=== PATIENT | female | born 1975 | race African-American/Black ===

== ENCOUNTER 2019-05-13 10:27 | Inpatient (IN) ==
[2019-05-13 11:14] LABS: BASO# 0.04 X1000 (0.0-0.2); BASO% 0.6 % (0.0-0.8); EOS# 0.02 X1000 (0.0-0.7); EOS% 0.3 % (0.0-10.0); HEMATOCRIT 25.9 % (37.0-47.0); HEMOGLOBIN 6.8 g/dL (12.0-16.0); IMM GRAN# 0.03 X1000 (0.0-0.04); IMM GRAN% 0.5 % (0.0-0.5); LYMPH# 2.01 X1000 (1.2-3.4); LYMPH% 30.8 % (20.5-51.1); MCH 17.5 PG (27-31); MCHC 26.3 g/dL (33-37); MCV 66.8 FL (81-99); MONO# 0.99 X1000 (0.11-0.59); MONO% 15.2 % (1.7-9.3); NEUT# 3.44 X1000 (1.4-6.5); NEUT% 52.6 % (42.2-75.2); PLT 246 X1000 (130-400); RBC 3.88 XMIL (4.2-5.4); RDW 23.4 % (11.5-14.5); WBC 6.53 X1000 (4.8-10.8)
[2019-05-13 11:23] LABS: UR AMPHETAMINES QUAL NONE DETECTED (NONE DETECT); UR BARBITUATES QUAL NONE DETECTED (NONE DETECT); UR BENZODIAZEPIN QUAL NONE DETECTED (NONE DETECT); UR CANNABINOIDS QUAL NONE DETECTED (NONE DETECT); UR COCAINE QUAL PRESUMPTIVE POSITIVE (NONE DETECT); UR METHADONE QUAL NONE DETECTED (NONE DETECT); UR METHAMPHETAMINE QUAL NONE DETECTED (NONE DETECT); UR OPIATES QUAL NONE DETECTED (NONE DETECT); UR OXYCODONE QUAL NONE DETECTED (NONE DETECT); UR PCP QUAL NONE DETECTED (NONE DETECT); UR PROPOXYPHENE QUAL NONE DETECTED (NONE DETECT); UR TCA QUAL NONE DETECTED (NONE DETECT)
[2019-05-13 11:31] LABS: AGAP 10; ALBUMIN 3.8 g/dL (3.5-5.0); ALKALINE PHOSPHATASE 70 U/L (32-104); BUN 8 mg/dL (8-22); CHLORIDE 99 mmol/L (98-107); COSMO 267; CREATININE 0.6 mg/dL (0.5-0.9); ESTIMATED GFR > 60; GLUCOSE 139 mg/dL (70-104); GOT 29 U/L (10-30); GPT 12 U/L (10-36); POTASSIUM 3.9 mmol/L (3.5-5.1); SODIUM 133 mmol/L (136-145); TCO2 24 mmol/L (25-35); TOTAL PROTEIN 7.8 g/dL (6.3-8.3)
--- NOTE | 2019-05-13 11:33 | Diag Imaging Result Doc PS360 ---
EXAM: CHEST-1 VIEW - 05/13/2019 HISTORY: sob TECHNIQUE: One view chest COMPARISON: 03/12/2019 FINDINGS: Heart size appears enlarged by mildly decreased compared to prior. There is mild prominence of central vascular and basilar interstitial markings. There is no dense consolidation, substantial pleural effusion, or pneumothorax identified. There is scoliosis noted. IMPRESSION: Cardiomegaly, with apparent mild congestive heart failure. Electronically signed by Antonio Bailey 05/13/2019 11:31 AM
[2019-05-13 11:37] LABS: BILIRUBIN URINE NEGATIVE (NEGATIVE); BLOOD URINE NEGATIVE (NEGATIVE); CLARITY CLEAR (CLEAR); COLOR YELLOW; GLUCOSE URINE NEGATIVE (NEGATIVE); KETONE URINE TRACE mg/dL (NEGATIVE); LEUKOCYTES URINE TRACE (NEGATIVE); NITRITE URINE NEGATIVE (NEGATIVE); PROTEIN URINE TRACE mg/dL (NEGATIVE); UROBILINOGEN URINE NORMAL
[2019-05-13 11:38] LABS: URINE BACTERIA 3+ /HFP; URINE CRYSTAL NONE SEEN /HPF; URINE EPITHELIAL CELLS >10 /HPF (<10); URINE RBC <10 /HPF (<10); URINE SOURCE CLEAN CATCH; URINE TRICHOMONAS PRESENT; URINE YEAST NONE SEEN /HPF
[2019-05-13 11:59] LABS: ANISOCYTOSIS 2+; LYMPHS 27 % (21-51); MICROCYTOSIS 1+; MONO 9 % (1-9); SEGS 64 % (42-75)
--- NOTE | 2019-05-13 12:03 | EKG Report ---
Test Performed on : 05/13/2019 11:56:45 AM Test Reason : sob Blood Pressure : / mmHG Vent. Rate : 100 BPM Atrial Rate : 100 BPM P-R Int : 160 ms QRS Dur : 080 ms QT Int : 380 ms P-R-T Axes : 075 060 -27 degrees QTc Int : 490 ms Normal sinus rhythm. Possible Left atrial enlargement Low voltage QRS Cannot rule out Anterior infarct , age undetermined Abnormal ECG When compared with ECG of 12-MAR-2019 10:40, (Unconfirmed) Minimal criteria for Anterior infarct are now present Unconfirmed Result
[2019-05-13] MEDS ORDERED: NS 500 ML IV ONE (12:06)
--- NOTE | 2019-05-13 12:06 | PROVIDER DOCUMENTATION ---
This chart was entered by Rosalio Duke Scribe, acting as scribe for Rene Escoto MD. HPI-General Adult - General Chief Complaint: Edema Stated Complaint: FEET SWELLING Time Seen by Provider: 05/13/19 10:40 Source: patient Allergies/Adverse Reactions: Patient Allergies Allergy/AdvReac Type Severity Reaction Status Date / Time No Known Allergies Allergy Verified 05/11/15 12:04 Home Medications: Home Medication List Medication Instructions Recorded Confirmed Last Taken Type NK [No Home Medications] 05/13/19 05/13/19 Unknown History - History of Present Illness -Gen Adult Nature of Presenting Problems: Pt is a 44 yof who presents to the ED with a CC of edema. Pt reports her feet simmons ve been swelling for approximately one month. Pt reports she was seen here in February for similar symptoms and states she left AMA and refused a transfusion. Pt complains of generalized weakness and an itching sensation across her body. Pt also complains of being short of breath having a cough, and numbness bilaterally in her hands. Upon examination the pt had 1+ pitting edema bilaterally in her lower extremities. Location of Pain/Injury: reports: feet (Bilateral edema), generalized Quality of Pain: reports: fullness, other Severity: reports: mild Onset/Duration: reports: other (One month) Timing: reports: still present Associated Symptoms: reports: cough, shortness of breath, weakness, other Similar Symptoms Previously?: Yes Recently seen or treated by another doctor?: No Review of Systems - Adult - REVIEW OF SYSTEMS - ADULT Constitutional: reports: see HPI Eyes: reports: no symptoms reported Ears, Nose, Mouth & Throat: reports: no symptoms reported Cardiovascular: reports: see HPI Respiratory: reports: see HPI, cough, shortness of breath Gastrointestinal: reports: no symptoms reported Genitourinary: reports: no symptoms reported Musculoskeletal: reports: see HPI, muscle weakness Integumentary: reports: see HPI, itching Neurological: reports: see HPI, numbness (Bilateral hands) Psychiatric: reports: no symptoms reported Endocrine: reports: no symptoms reported Hematologic/Lymphatic: reports: see HPI Allergic/Immunologic: reports: no symptoms reported All Other Systems: Reviewed and Negative Past History - Adult - PAST MEDICAL HISTORY-ADULT Review of Records: reports: Old Records Reviewed, Nursing Assessment Review, Medications Reviewed, Social history reviewed & non-contributory. Major Childhood Illnesses: reports: denies history Cardiovascular: reports: denies history Respiratory: reports: denies history Gastrointestinal: reports: denies history Obstetrical/Gynecological: reports: denies history Genitourinary: reports: denies history Musculoskeletal: reports: denies history Neurological: reports: denies history Endocrine/Immune: reports: anemia Other Conditions: reports: denies history - IMMUNIZATION STATUS Childhood Immunizations: See Nurse Assessment Flu Vaccine: See Nurse Assessment - FAMILY HISTORY Family History: reviewed, not pertinent - SOCIAL HISTORY Smoking: cigarettes, greater than 1 pack/day Substance Use: alcohol, marijuana Alcohol Use Frequency: every day Physical Exam-General - PHYSICAL EXAM-ADULT Initial Vital Signs Reviewed: Yes - CONSTITUTIONAL General Appearance: alert, mild distress - EYES Eyes: PERRL/EOMI - HEAD, EARS, NOSE, MOUTH & THROAT HENMT: moist mucous membranes - NECK Neck: non-tender, full range of motion - RESPIRATORY Respiratory: chest non-tender, lungs clear, normal breath sounds - CARDIOVASCULAR Cardiovascular: tachycardia, other (edema) - GASTROINTESTINAL (ABDOMEN) Abdominal Exam: non tender, soft - MUSCULOSKELETAL Extremity: normal range of motion, pedal edema (Bilaterally) - SKIN Integumentary: normal color, warm/dry, swelling - NEUROLOGIC Neurologic: grossly normal - PSYCHIATRIC Psych/Mental Status: normal mood/affect, normal thought content, normal thought process, oriented x 3 Progress - PLAN OF CARE/RESULTS Progress/Plan/Lab Results: Vital Signs - 8 hr 05/13/19 10:35 Temperature 97.8 F Pulse Rate 112 H Respiratory Rate 18 Blood Pressure 166/87 O2 Sat by Pulse Oximetry 98 Orders Category Date Time Status CBC WITH DIFF [HEME] Stat Lab 05/13/19 10:39 Ordered COMPREHENSIVE METABOLIC PANEL [CHEM] Stat Lab 05/13/19 10:[address] W/POSS RFLX CULT [URINALYSIS] Stat Lab 05/13/19 10:39 Uncollected Result Diagrams: 05/13/19 10:53 05/13/19 10:53 - EKG 1 Time of EKG reading by physician:: 11:56 EKG Read and Signed by:: Rene Escoto EKG Interpretation (*Must complete 3 of following elements*): Abnormal (Possible left atrial enlargement; Low voltage QRS; Cannot rule out anterior infarct, age undetermined) Rate: 100 Rhythm: NSR [place]: normal QRS: normal IA Interval: normal ST Wave: normal - XRAY 1 XRAY: Bilateral XRAY Study: Chest Impression: See EMR Report (EXAM: CHEST-1 VIEW - 05/13/2019 HISTORY: sob TECHNIQUE: One view chest COMPARISON: 03/12/2019 FINDINGS: Heart size appears enlarged by mildly decreased compared to prior. There is mild prominence of central vascular and basilar interstitial markings. There is no dense consolidation, substantial pleural effusion, or pneumothorax identified. There is scoliosis noted. IMPRESSION: Cardiomegaly, with apparent mild congestive heart failure. Electronically signed by Antonio Bailey 05/13/2019 11:31 AM 05/13/19 1131 Interpreting Physician: Antonio Bailey MD Dictated Date/Time: 05/13/19 1126 cc: Rene Escoto MD; None,PCP) Departure - Departure Date of Disposition Decision: 05/13/19 Time of Disposition Decision: 12:05 DIAGNOSIS: Edema, CHF (congestive heart failure), Anemia, UTI (urinary tract infection), Substance abuse Disposition: ADMITTED INPATIENT 09 Certified Medical Emergency: Emergent Condition: Fair Additional Instructions: ED Follow Up Instructions: You have been treated by a care provider in the Emergency Department. These instructions are being provided to you so you can have an understanding of how to care for yourself upon discharge. Upon discharge from the Emergency Department, you are responsible for making arrangements for follow-up care by a physician of your choice. Take all prescribed medications as directed. Return to the Emergency Department immediately for any new or worsening symptoms. You may call the Physician Referral phone number at [phone] to obtain a list of Physicians who are taking new patients. Referrals and Follow-Ups: None,PCP [Primary Care Provider] - - Critical Care Note This patient required my direct & personal management of CC.: Yes Total Time (mins): 35 Critical Care Statement: This patient required my direct personal management to treat or rule out processes, the absence of which, could potentiallly result in sudden, clinically significant life or limb threatening deterioration. Attestation - Physician/ WILI Attestation Patient care was provided by Advanced Practice Provider:: No The physician spent face to face time with patient:: Yes Advanced Practice Provider documentation review:: Supervising physician onsite and consulted in the evaluation and care of this patient. The physician did have a face to face encounter with the patient. This chart was documented by the indicated scribe, (Rosalio Duke, Victorino) and accurately reflects the services I performed and decisions made by me, Rene Escoto MD, as attested by the provider's signature.
[2019-05-13] MEDS ORDERED: ROCEPHIN 1 GM in NS 50 ML IV ONE (12:09)
[2019-05-13] MEDS ORDERED: NICODERM PATCH TD ONE (12:35)
[2019-05-13] MEDS ORDERED: TYLENOL PO PRN ×2 (13:14→13:15)
[2019-05-13] MEDS ORDERED: ZOFRAN IV PRN ×2 (13:14→13:15)
[2019-05-13] MEDS ORDERED: DUONEB (A & A) INH PRN (13:15)
[2019-05-13] MEDS ORDERED: FLU VACCINE IM ONE (15:24)
[2019-05-13] MEDS ORDERED: PNEUMOVAX 23 IM ONE (16:00)
[2019-05-13] MEDS: HUMALOG (PARKWAY) SUBQ SCH ×2 (16:55→21:49)
--- NOTE | 2019-05-13 18:05 | HISTORY AND PHYSICAL ---
CHIEF COMPLAINT: Lower extremity edema x1 month with generalized weakness and generalized itching with shortness of breath and a cough. HISTORY OF PRESENT ILLNESS: This is a 44-year-old female with a history significant for depression and anemia. She presented to the emergency room complaining of lower extremity edema for the last month as well as generalized weakness, generalized itching, with shortness of breath and a cough. The patient presented to the emergency room in February for evaluation and left against medical advice. Her complaint then was bilateral lower extremity edema. She denies any syncope or dizziness, any chest pain or palpitations, any fevers or chills. PAST MEDICAL HISTORY: Hypertension and depression. SOCIAL HISTORY: Cocaine abuse. Cannabinoid abuse and tobacco use. She drinks about six beers a day. ALLERGIES: No known drug allergies. HOME MEDICATIONS: None. REVIEW OF SYSTEMS: Discussed with the patient with pertinent positives stated in the HPI. She denied any syncope or dizziness, chest pain or palpitations, any fever, chills, or night sweats, recent weight loss or weight gain, any nausea, vomiting, diarrhea, constipation, black or bloody vomitus or stools, hematuria, dysuria, frequency or urgency. PHYSICAL EXAMINATION: GENERAL: This is a 44-year-old female who is sitting up in the bed in no distress. VITAL SIGNS: Blood pressure is 142/95 with a heart rate of 98, respirations are 18, temperature is 98.3 with room air saturation of 97% to 100%. EYES: Pupils are equal, round, react to light. EOMs are intact. Sclerae are anicteric. HEENT: Head is normocephalic, atraumatic. Mucous membranes are moist. NECK: Supple with trachea midline. She has no JVD. CARDIOVASCULAR: Regular rate and rhythm. S1 and S2 appreciated. She has bilateral lower extremity edema from just around the knees down, being trace of pretibial edema with 1 to 2+ lower extremity edema. Calves are nontender bilateral with peripheral pulses palpable x4 extremities. PULMONARY: Breath sounds are clear. No increased work of breathing noted. Chest rises and falls symmetric with respiration. GASTROINTESTINAL: Abdomen is soft, nontender, and nondistended with bowel sounds in all four quadrants. GENITOURINARY: No CVA or suprapubic tenderness. NEUROLOGIC: She is alert and oriented x3. SKIN: Warm and dry. LABORATORY DATA: WBC is 6.5 with hemoglobin 6.8, hematocrit 25.9, and platelets of 246,000. Sodium 133, potassium 3.9, BUN 8, creatinine 0.6 with a glucose of 139. Troponin is less than 0.010 on multiple occasions. ProBNP is 2717. Urinalysis reveals 10-20 microscopic white blood cells, greater than 10 epithelial cells with trichomonas present. Urine drug screen is presumptive positive for cocaine. Urine culture is pending. IMAGING: Chest x-ray reveals cardiomegaly with apparent mild congestive heart failure. ASSESSMENT AND PLAN: 1. Congestive heart failure. The patient denies any history. In reviewing her chest x-rays, a chest x-ray was performed in February 2019 and it revealed an enlarged heart that was not enlarged in 2014. Will obtain an echocardiogram. Daily weights. Strict intake and output. 2. Trichomonas - Flagyl 500 mg orally every eight hours. Urine culture is pending so any further antibiotics will be culture driven. 3. Cocaine abuse. Did discuss with the patient the perils of continuing to smoke cocaine, that could ultimately lead up to her demise. She did voice understanding. 4. Chronic tobacco abuse. We did discuss smoking cessation. She will be given written materials. Plan was discussed with Dr. Mo. Further treatments pending hospital course. Dictated by ALMA Farmer for Robert oM MD cc: ALMA Farmer MD [facility]
[2019-05-13 20:05] LABS: OCCULT BLOOD 1 NEGATIVE (NEGATIVE)
[2019-05-13] MEDS: FLAGYL PO SCH (21:04)
--- NOTE | 2019-05-13 23:49 | HISTORY AND PHYSICAL ---
ADDENDUM: Patient seen and examined by myself. Full note dictated and discussed with nurse practitioner. Patient presented to the hospital noting that she has had swelling in her feet. Also notes that she has been itching "inside her body." She apparently has a history of anemia although her hemoglobin and hematocrit has not been this low. We are going to admit to the hospital, transfuse her 1 unit. Discussed with her that she probably has a urinary tract infection. We are going to place her on antibiotics. Discussed the perils of cocaine use as well as other illicit substance use. We are going to check an echocardiogram and we will follow. cc: Robert Mo MD
[2019-05-14] MEDS: FLAGYL PO SCH (04:20)
[2019-05-14 05:28] LABS: HEMOGLOBIN 9.1 g/dL (12.0-16.0); MCH 20.2 PG (27-31); MCHC 29.4 g/dL (33-37); MCV 68.7 FL (81-99); PLT 239 X1000 (130-400); RBC 4.51 XMIL (4.2-5.4); RDW 24.4 % (11.5-14.5); WBC 6.28 X1000 (4.8-10.8)
[2019-05-14 05:35] LABS: AGAP 10; ALBUMIN 3.4 g/dL (3.5-5.0); ALKALINE PHOSPHATASE 69 U/L (32-104); BUN 8 mg/dL (8-22); CALCIUM 8.9 mg/dL (8.8-10.2); CHLORIDE 102 mmol/L (98-107); COSMO 266; CREATININE 0.6 mg/dL (0.5-0.9); ESTIMATED GFR > 60; GLUCOSE 96 mg/dL (70-104); GOT 25 U/L (10-30); GPT 11 U/L (10-36); MAGNESIUM 1.5 mg/dL (1.5-2.7); POTASSIUM 4.1 mmol/L (3.5-5.1); SODIUM 134 mmol/L (136-145); TCO2 22 mmol/L (25-35); TOTAL PROTEIN 7.3 g/dL (6.3-8.3)
[2019-05-14] MEDS: HUMALOG (PARKWAY) SUBQ SCH (06:44)
[2019-05-14 08:37] VITALS: BP 136/100
[2019-05-14] MEDS ORDERED: ROCEPHIN 1 GM in NS 50 ML IV SCH (10:00)
--- NOTE | 2019-05-14 17:48 | ECHO REPORT ---
ORDER DATE: 05/13/2019 MEASUREMENTS: Septal thickness 1.5, left ventricular internal diameter diastole 5.0, left ventricular posterior wall thickness 1.2, left ventricular internal diameter end systole 4.2, aortic root 3.1, left atrium 4.6. SUMMARY: 1. Adequate quality study. 2. Aortic valve is trileaflet and opens normally on 2-dimensional images. The peak gradient across the aortic valve is less than 10 mmHg. Mitral, tricuspid, and pulmonic valves are without evidence of structural abnormality with mild mitral regurgitation and [id number] tricuspid regurgitation. The estimated systolic PA pressure by Doppler is 50 to 55 mmHg suggesting moderate pulmonary hypertension. Aortic root is normal size. 3. Normal left ventricular chamber size with mild concentric left hypertrophy is demonstrated. The estimated left ejection fraction is 30% to 35% in the setting of global hypokinesis. Left atrium is [id number] enlarged. Right atrium is mildly enlarged. Right ventricle is upper normal in size with borderline reduced right ventricular systolic function. 4. Borderline reduced right ventricular systolic function. 5. Small pericardial effusion predominantly posteriorly. 6. Appearance of inferior vena cava suggests elevated central venous pressure. cc: MD Robert Ames MD
--- NOTE | 2019-05-15 04:55 | DISCHARGE SUMMARY ---
ADMISSION DATE: 05/13/2019 DISCHARGE DATE: 05/14/2019 ADDENDUM: Patient seen and examined by myself. Full note dictated and discussed with nurse practitioner. The patient will be discharged home. She did receive 1 unit of blood transfusion. Her hemoglobin and hematocrit elevated as to be expected. Discussed with patient the importance of following up regarding her congestive heart failure and hypertension. Discussed the perils of cocaine use as well as other stimulants. Patient will be discharged home. Please see full note. cc: Robert Mo MD
== END 2019-05-14 10:11 | disposition home or self-care (01) | DRG 292 ==
LOC: P.ED 10:27 → P.MEDSURG 14:28
PROVIDERS: ATTEND Family Medicine

== ENCOUNTER 2019-07-23 22:35 | Observation (INO) ==
[~2019-07-23 22:35] MED LIST: LASIX IV ONE
[2019-07-23 22:49] LABS: BE 0.3 mmoll (-3.0-3.0); BLOOD TYPE ARTERIAL; HCO3-(ACT) 25.1 mmoll (20.0-26.0); METHB 0.8 % (0.0-1.5); O2(CT) 11.5 mL/dL (15.0-23.0); O2HB 94.1 % (95.0-99.0); PCO2(98.6) 37 mmHg (35-45); PO2(98.6) 208 mmHg (60-100); SAMPLE BLOOD; SAO2 100.3 % (95.0-100.0); THB 8.3 g/dL (11.5-17.4); pH(98.6) 7.43 (7.35-7.45)
[2019-07-23 22:52] LABS: ALLEN TEST NO; MODALITY NRB
[2019-07-23 23:11] LABS: BASO# 0.03 X1000 (0.0-0.2); BASO% 0.5 % (0.0-0.8); EOS# 0.03 X1000 (0.0-0.7); EOS% 0.5 % (0.0-10.0); HEMATOCRIT 28.3 % (37.0-47.0); HEMOGLOBIN 8.3 g/dL (12.0-16.0); IMM GRAN# 0.02 X1000 (0.0-0.04); IMM GRAN% 0.3 % (0.0-0.5); LYMPH# 1.72 X1000 (1.2-3.4); LYMPH% 27.6 % (20.5-51.1); MCH 20.3 PG (27-31); MCHC 29.3 g/dL (33-37); MCV 69.4 FL (81-99); MONO% 11.2 % (1.7-9.3); NEUT# 3.73 X1000 (1.4-6.5); NEUT% 59.9 % (42.2-75.2); PLT 238 X1000 (130-400); RBC 4.08 XMIL (4.2-5.4); RDW 25.2 % (11.5-14.5); WBC 6.23 X1000 (4.8-10.8)
[2019-07-23 23:21] LABS: UR AMPHETAMINES QUAL NONE DETECTED (NONE DETECT); UR BARBITUATES QUAL NONE DETECTED (NONE DETECT); UR BENZODIAZEPIN QUAL NONE DETECTED (NONE DETECT); UR CANNABINOIDS QUAL PRESUMPTIVE POSITIVE (NONE DETECT); UR COCAINE QUAL PRESUMPTIVE POSITIVE (NONE DETECT); UR METHADONE QUAL NONE DETECTED (NONE DETECT); UR METHAMPHETAMINE QUAL NONE DETECTED (NONE DETECT); UR OPIATES QUAL NONE DETECTED (NONE DETECT); UR OXYCODONE QUAL NONE DETECTED (NONE DETECT); UR PCP QUAL NONE DETECTED (NONE DETECT); UR PROPOXYPHENE QUAL NONE DETECTED (NONE DETECT); UR TCA QUAL NONE DETECTED (NONE DETECT)
[2019-07-23 23:26] LABS: AGAP 12; ALBUMIN 2.9 g/dL (3.5-5.0); ALKALINE PHOSPHATASE 124 U/L (32-104); BUN 7 mg/dL (8-22); CALCIUM 7.9 mg/dL (8.8-10.2); CHLORIDE 105 mmol/L (98-107); COSMO 275; CREATININE 0.6 mg/dL (0.5-0.9); ESTIMATED GFR > 60; GLUCOSE 120 mg/dL (70-104); GOT 52 U/L (10-30); GPT 17 U/L (10-36); POTASSIUM 3.6 mmol/L (3.5-5.1); SODIUM 138 mmol/L (136-145); TCO2 21 mmol/L (25-35); TOTAL PROTEIN 7.2 g/dL (6.3-8.3)
--- NOTE | 2019-07-24 00:09 | PROVIDER DOCUMENTATION ---
This chart was entered by Dolores Ricks Scribe, acting as scribe for Baltazar Dinero MD. HPI-Respiratory General - General Stated Complaint: difficult breathing Time Seen by Provider: 07/23/19 22:25 Source: patient, EMS Allergies/Adverse Reactions: Patient Allergies Allergy/AdvReac Type Severity Reaction Status Date / Time No Known Allergies Allergy Verified 07/24/19 00:30 Home Medications: Home Medication List Medication Instructions Recorded Confirmed Last Taken Type NK [No Home Medications] 06/17/19 07/24/19 Unknown History - History of Present Illness-Resp Nature of Presenting Problem: pt is a 44 yr old female presenting via EMS with complaint of worsening shortness of breath, pt hx of CHF, no home o2, no nebulizer tx, does not take Lasix. pt reports improvement albuterol inhaler(borrowed) pt denies chest pain, admits increased edema. pt also admits excessive cocaine use during [place]. EMS report room air sat in 70's. Quality of Pain: reports: none Severity in ED: reports: severe Onset/Duration: reports: gradual Timing: reports: changing over time, getting worse Cough Quality/Degree: reports: moderate, dry cough Episode Frequency: frequent episodes Current Respiratory Medication Therapy: Initiated albuterol (albuterol inhaler- borrowed, minimal improvement) Modifying Factors: improves with: albuterol inhaler (minimal improvement) Associated Symptoms: reports: cough, hyperventilating, shortness of breath, wheezing, other (edema). denies: chest pain/soreness, fever/chills Similar Symptoms Previously?: Yes Recently seen or treated by another doctor?: No Review of Systems - Adult - REVIEW OF SYSTEMS - ADULT Constitutional: reports: fatique. denies: chills, fever Eyes: reports: no symptoms reported Ears, Nose, Mouth & Throat: reports: no symptoms reported Cardiovascular: reports: edema. denies: chest pain, palpitations, syncope Respiratory: reports: chronic cough, cough, dyspnea on exertion, shortness of breath, wheezing Gastrointestinal: denies: abdominal pain, nausea, vomiting Genitourinary: reports: no symptoms reported Musculoskeletal: reports: no symptoms reported Integumentary: reports: no symptoms reported Neurological: denies: dizziness/vertigo, headache/migraines, syncope Psychiatric: reports: no symptoms reported Endocrine: reports: no symptoms reported Hematologic/Lymphatic: reports: no symptoms reported Allergic/Immunologic: reports: no symptoms reported All Other Systems: Reviewed and Negative Past History - Adult - PAST MEDICAL HISTORY-ADULT Review of Records: reports: Old Records Reviewed, Nursing Assessment Review, Medications Reviewed, Social history reviewed & non-contributory. Major Childhood Illnesses: reports: denies history Cardiovascular: reports: denies history Respiratory: reports: denies history Gastrointestinal: reports: denies history Obstetrical/Gynecological: reports: denies history Genitourinary: reports: denies history Musculoskeletal: reports: denies history Neurological: reports: denies history Endocrine/Immune: reports: denies history Other Conditions: reports: denies history - IMMUNIZATION STATUS Childhood Immunizations: See Nurse Assessment Flu Vaccine: See Nurse Assessment - FAMILY HISTORY Family History: reviewed, not pertinent - SOCIAL HISTORY Smoking: cigarettes, greater than 1 pack/day (2+ppd) Provider spent 3-5 mins advising pt. on dangers of tobacco.: Discussed manners to quit use, and f/u contacts for add'l counseling. Substance Use: cocaine Living Situation: alone Physical Exam-General - PHYSICAL EXAM-ADULT Initial Vital Signs Reviewed: Yes - CONSTITUTIONAL General Appearance: alert, moderate distress, anxious - EYES Eyes: PERRL/EOMI, pink conjunctivae - HEAD, EARS, NOSE, MOUTH & THROAT HENMT: normocephalic/atraumatic, moist mucous membranes, normal ENT inspection - NECK Neck: non-tender, full range of motion, supple, normal inspection - RESPIRATORY Respiratory: chest non-tender, decreased breath sounds, rales, wheezing, increased rate - CARDIOVASCULAR Cardiovascular: regular rate, rhythm, tachycardia, other (diffuse edema) - GASTROINTESTINAL (ABDOMEN) Abdominal Exam: normal bowel sounds, non tender, distended - LYMPHATIC Lymphatic: no adenopathy - MUSCULOSKELETAL Back Exam: normal inspection Extremity: normal range of motion, non-tender, pedal edema - SKIN Integumentary: normal color, normal turgor, warm/dry - NEUROLOGIC Neurologic: grossly normal, no motor/sensory deficits - PSYCHIATRIC Psych/Mental Status: oriented x 3, anxious Progress - PLAN OF CARE/RESULTS Progress/Plan/Lab Results: Vital Signs - 8 hr 07/23/19 22:31 07/23/19 23:11 07/23/19 23:29 Pulse Rate 100 H 107 H Respiratory Rate 26 H 26 H Blood Pressure 144/100 141/99 O2 Sat by Pulse Oximetry 100 100 100 07/24/19 00:20 07/24/19 01:03 Pulse Rate 101 H 98 H Respiratory Rate 24 12 Blood Pressure 141/102 138/101 O2 Sat by Pulse Oximetry 100 98 Laboratory Results - last 24 hr 07/23/19 07/23/19 07/23/19 22:30 22:41 22:41 WBC 6.23 RBC 4.08 L Hgb 8.3 L Hct 28.3 L MCV 69.4 L MCH 20.3 L MCHC 29.3 L RDW Std Deviation 25.2 H Plt Count 238 MPV Not Reportable Immature Gran % (Auto) 0.3 Neut % (Auto) 59.9 Lymph % (Auto) 27.6 [place] % (Auto) 11.2 H Eos % (Auto) 0.5 Baso % (Auto) 0.5 Immature Gran # (Auto) 0.02 Neut # (Auto) 3.73 Lymph # (Auto) 1.72 [place] # (Auto) 0.70 H Eos # (Auto) 0.03 Baso # (Auto) 0.03 Specimen Type ARTERIAL Sample Site L BRACHIAL pH 7.43 pCO2 37 pO2 208 H HCO3 25.1 Base Excess 0.3 Oxyhemoglobin 94.1 L ABG O2 Sat (Calculated) 11.5 L ABG O2 Saturation 100.3 H ABG Carboxyhemoglobin 5.40 H* ABG Methemoglobin 0.8 Bunny Test NO A-a O2 Difference 459.0 Total Hemoglobin 8.3 L Lactate 2.30 H Liter Flow 15.0 Blood Gas Modality NRB FiO2 % 100.0 Sodium Potassium Chloride Carbon Dioxide Anion Gap BUN Creatinine Estimated GFR/1.73 m2 BUN/Creatinine Ratio Glucose Calculated Osmolality Calcium Total Bilirubin AST ALT Alkaline Phosphatase Troponin T < 0.010 Ysg-U-Bfeufktobib Pept Total Protein Albumin Globulin Albumin/Globulin Ratio Urine Opiates Screen Ur Oxycodone Screen Urine Methadone Screen U Propoxyphene Qual Ur Barbituates Screen Ur Tricyclics Screen Ur Phencyclidine Scrn Ur Amphetamines Screen U Methamphetamines Scrn U Benzodiazepines Scrn Urine Cocaine Screen U Cannabinoids Screen 07/23/19 07/23/19 07/23/19 22:41 22:41 23:02 WBC RBC Hgb Hct MCV MCH MCHC RDW Std Deviation Plt Count MPV Immature Gran % (Auto) Neut % (Auto) Lymph % (Auto) [place] % (Auto) Eos % (Auto) Baso % (Auto) Immature Gran # (Auto) Neut # (Auto) Lymph # (Auto) [place] # (Auto) Eos # (Auto) Baso # (Auto) Specimen Type Sample Site pH pCO2 pO2 HCO3 Base Excess Oxyhemoglobin ABG O2 Sat (Calculated) ABG O2 Saturation ABG Carboxyhemoglobin ABG Methemoglobin Bunny Test A-a O2 Difference Total Hemoglobin Lactate Liter Flow Blood Gas Modality FiO2 % Sodium 138 Potassium 3.6 Chloride 105 Carbon Dioxide 21 L Anion Gap 12 BUN 7 L Creatinine 0.6 Estimated GFR/1.73 m2 > 60 BUN/Creatinine Ratio 12 Glucose 120 H Calculated Osmolality 275 Calcium 7.9 L Total Bilirubin 1.70 H AST 52 H ALT 17 Alkaline Phosphatase 124 H Troponin T Vaq-C-Cppxodyqrwk Pept 1081 H Total Protein 7.2 Albumin 2.9 L Globulin 4.0 Albumin/Globulin Ratio 1.0 Urine Opiates Screen NONE DETECTED Ur Oxycodone Screen NONE DETECTED Urine Methadone Screen NONE DETECTED U Propoxyphene Qual NONE DETECTED Ur Barbituates Screen NONE DETECTED Ur Tricyclics Screen NONE DETECTED Ur Phencyclidine Scrn NONE DETECTED Ur Amphetamines Screen NONE DETECTED U Methamphetamines Scrn NONE DETECTED U Benzodiazepines Scrn NONE DETECTED Urine Cocaine Screen PRESUMPTIVE POSITIVE A U Cannabinoids Screen PRESUMPTIVE POSITIVE A Orders Category Date Time Status Admit - [facility] Routine AdmDCTranf 07/24/19 00:39 Active Cardiac Monitoring DIRECTED Care 07/23/19 22:37 Active Doran Cath Discontinuation ONCE Care 07/24/19 00:19 Active Doran Cath Insertion ORDERED Care 07/23/19 23:10 Active Resuscitation Status Routine Care 07/24/19 00:39 Ordered Saline Loc NOW Care 07/23/19 22:38 Active Vital Signs Order Q 4-HR ASSESS Care 07/24/19 00:39 Active Z-Document. for Tele Applied ORDERED Care 07/24/19 00:40 Active NPO Diet 07/24/19 00:40 Active CHEST-PORTABLE [RAD] Stat Exams 07/23/19 22:32 Taken ABG [RESP] Routine Lab 07/23/19 22:30 Completed BNP [PRO B-NATRIURETIC PEPTIDE] Stat Lab 07/23/19 22:41 Completed CBC WITH ELECTRONIC DIFF [HEME] Stat Lab 07/23/19 22:41 Completed CMP [COMPREHENSIVE METABOLIC PANEL] [CHEM] Stat Lab 07/23/19 22:41 Completed TROPONIN T Q4HR Lab 07/24/19 01:00 Ordered TROPONIN T Q4HR Lab 07/24/19 05:00 Ordered TROPONIN T Stat Lab 07/23/19 22:41 Completed UA [URINALYSIS] [URINALYSIS] Routine Lab 07/24/19 01:26 Ordered URINE DRUG SCREEN PL Stat Lab 07/23/19 23:02 Completed Furosemide [Lasix] Med 07/24/19 00:45 Active 40 mg IV Q12H Furosemide [Lasix] Med 07/23/19 22:31 Discontinued 60 mg IV NOW ONE Oxygen Device Routine Oth 07/24/19 00:40 Active Pulse Oximetry Stat Oth 07/23/19 22:40 Active Telemetry [OM.EQ] Routine Oth 07/24/19 00:39 Active EKG [EKG] Stat Ther 07/23/19 23:29 Draft Transfer/Admit Order [TRANSFER] Routine Transfer 07/24/19 00:41 Ordered Result Diagrams: 07/23/19 22:41 07/23/19 22:41 - EKG 1 Time of EKG reading by physician:: 22:36 EKG Read and Signed by:: Baltazar Dinero EKG Interpretation (*Must complete 3 of following elements*): Abnormal (can not rule out anteroseptal infarct-age undetermined) Rate: 102 Rhythm: sinus tachycardia Siler: normal QRS: other (low voltage QRS) - XRAY 1 XRAY Study: Chest XRAY Interpretation: cardiomegaly, increased vascular markings - CONSULTS/PCP/HOSPITALIST Notification #1 *Consult/PCP/Hospitalist*: Dr Mo, hospitalist Time Discussed: 00:35 Consult Disposition: Admit Departure - Departure Date of Disposition Decision: 07/23/19 Time of Disposition Decision: 22:25 DIAGNOSIS: Cocaine abuse, Uncontrolled hypertension CHF (congestive heart failure) Qualifiers: Heart failure type: other Qualified Code(s): I50.9 - Heart failure, unspecified Disposition: ADMITTED INPATIENT 09 Certified Medical Emergency: Emergent Condition: Stable Referrals and Follow-Ups: None,PCP [Primary Care Provider] - - Critical Care Note This patient required my direct & personal management of CC.: No Attestation - Physician/ WILI Attestation Patient care was provided by Advanced Practice Provider:: No The physician spent face to face time with patient:: Yes Advanced Practice Provider documentation review:: Supervising physician onsite and consulted in the evaluation and care of this patient. The physician did have a face to face encounter with the patient. This chart was documented by the indicated scribe, (Dolores Ricks, [place]) and accurately reflects the services I performed and decisions made by me, Baltazar Dinero MD, as attested by the provider's signature.
--- NOTE | 2019-07-24 00:42 | EKG Report ---
Test Performed on : 07/23/2019 10:36:05 PM Test Reason : sob Blood Pressure : / mmHG Vent. Rate : 102 BPM Atrial Rate : 102 BPM P-R Int : 178 ms QRS Dur : 056 ms QT Int : 306 ms P-R-T Axes : 055 076 035 degrees QTc Int : 398 ms Sinus tachycardia. Low voltage QRS Cannot rule out Anteroseptal infarct , age undetermined Abnormal ECG When compared with ECG of 17-JUN-2019 09:17, (Unconfirmed) Minimal criteria for Anteroseptal infarct are now present Borderline criteria for Inferior infarct are no longer present Nonspecific T wave abnormality has replaced inverted T waves in Anterior leads QT has shortened Confirmed by Mich Cortez MD ([id number]), photographic editor Luna Angelo ([id number]) on 08/30/2019 12:38:01 PM
[2019-07-24 01:32] LABS: URINE SOURCE CATH
[2019-07-24 02:41] LABS: BILIRUBIN URINE SMALL (NEGATIVE); BLOOD URINE NEGATIVE (NEGATIVE); COLOR YELLOW; GLUCOSE URINE NEGATIVE (NEGATIVE); KETONE URINE TRACE mg/dL (NEGATIVE); LEUKOCYTES URINE NEGATIVE (NEGATIVE); NITRITE URINE NEGATIVE (NEGATIVE); PROTEIN URINE 30 mg/dL (NEGATIVE); SP GRAVITY URINE 1.029; TURBIDITY URINE TURBID (CLEAR); UROBILINOGEN URINE 6 mg/dL (NORMAL)
[2019-07-24 02:42] LABS: UR EPITHELIAL CELLS <10 /HPF (<10); URINE BACTERIA NEGATIVE /HPF; URINE RBC <10 /HPF (<10); URINE WBC <10 /HPF (<10)
--- NOTE | 2019-07-24 03:29 | EKG Report ---
Test Performed on : 07/24/2019 02:52:44 AM Test Reason : pause Blood Pressure : / mmHG Vent. Rate : 095 BPM Atrial Rate : 095 BPM P-R Int : 150 ms QRS Dur : 072 ms QT Int : 318 ms P-R-T Axes : 071 081 -32 degrees QTc Int : 399 ms Normal sinus rhythm. Low voltage QRS Cannot rule out Anterior infarct (cited on or before 13-MAY-2019) Abnormal ECG When compared with ECG of 23-JUL-2019 22:36, (Unconfirmed) Questionable change in initial forces of Septal leads Confirmed by Mich Cortez MD ([id number]) on 08/05/2019 1:52:08 AM
--- NOTE | 2019-07-24 06:36 | EKG Report ---
Test Performed on : 07/24/2019 06:33:50 AM Test Reason : Chest pain Blood Pressure : / mmHG Vent. Rate : 091 BPM Atrial Rate : 091 BPM P-R Int : 150 ms QRS Dur : 076 ms QT Int : 402 ms P-R-T Axes : 081 095 -25 degrees QTc Int : 494 ms Normal sinus rhythm. Possible Left atrial enlargement Rightward axis Low voltage QRS Cannot rule out Anterior infarct (cited on or before 13-MAY-2019) Abnormal ECG When compared with ECG of 24-JUL-2019 02:52, (Unconfirmed) QT has lengthened Confirmed by Mich Cortez MD ([id number]) on 08/05/2019 1:52:00 AM
[2019-07-24 07:29] LABS: CK INDEX 1.6 (0.0-2.5); CK-MB 6.51 ng/mL (0.0-5.0)
--- NOTE | 2019-07-24 07:50 | Diag Imaging Result Doc PS360 ---
CHEST-PORTABLE - 07/23/2019 INDICATION: sob COMPARISON: 06/17/2019 FINDINGS: Stable cardiomegaly and pulmonary vascular congestion. There is a new small right pleural effusion. There is some stable hazy nonspecific infiltrate in the right lung base. IMPRESSION: New small right pleural effusion. Other findings are stable from prior. Electronically signed by Ja Rai 07/24/2019 7:48 AM
[2019-07-24] MEDS: LASIX IV SCH ×2 (10:52→21:09)
[2019-07-24] MEDS ORDERED: SALINE LOCK IV FLUID XX ONE (10:52)
--- NOTE | 2019-07-24 13:12 | HISTORY AND PHYSICAL ---
DATE: 07/24/2019 CHIEF COMPLAINT: Per EMR shortness of breath. HISTORY OF PRESENT ILLNESS: Ms. Syed is a 44-year-old female with a past medical history of cocaine and cannabinoid and tobacco abuse as well as daily alcohol use, hypertension, depression, and congestive heart failure, who reported to the ED for shortness of breath and increase in lower extremity edema and admitted to doing excessive cocaine during [place]. EMS reported that her O2 saturation was in the 70s. She was placed on a nonrebreather. Workup in the ED chest x-ray showed pulmonary vascular congestion, stable cardiomegaly, right pleural effusion and elevated proBNP, chronic anemia and positive for cocaine and cannabinoids. She was initiated on IV Lasix. She is now lying in the bed sleeping on her right side. She is no longer requiring the use of oxygen. She is very noncompliant with interview or physical exam. PAST MEDICAL HISTORY: Per HPI. PAST SURGICAL HISTORY: Unknown. SOCIAL HISTORY: Cocaine, cannabinoid, tobacco and alcohol use. ALLERGIES: No known drug allergies. HOME MEDICATIONS: None. REVIEW OF SYSTEMS: Could not obtain secondary to the patient not being cooperative. PHYSICAL EXAMINATION: General: Ms. Syed is a 44-year-old female who was sleeping on her right side. She did easily awaken, but became rather ill, did not want to comply with physical exam or questioning; however, she did state that her breathing felt better and then was uninterested in the rest of the physical exam or questioning. Lungs: I was able to listen to the lungs on the back. There were still some rales in her lung bases. Neurologic: She did awaken easily. She stated she was feeling better and again was uncooperative. I did try to look at the swelling on her feet. However, she jerked away and wanted to be left alone. DIAGNOSTIC DATA: Chest x-ray, new small right pleural effusion, stable cardiomegaly and pulmonary vascular congestion. LABORATORY DATA: White count 6, hemoglobin and hematocrit 8 and 23, and platelet count 238,000. Sodium 138, potassium 3.6, BUN 7, creatinine 0.6. Blood glucose is 120, T bilirubin 1.70, AST 52, ALT 17, alkaline phosphatase 124. Three sets of cardiac enzymes have been negative. ProBNP was 1081. Albumin 2.9. Positive for cocaine and cannabinoids. ASSESSMENT AND PLAN: 1. Congestive heart failure exacerbation. We will continue with IV diuresis. Strict I and Os, daily weights. She was on supplemental O2. She has now taken that off. Recent echocardiogram shows an EF of 30 to 35 percent with global hypokinesis. 2. Continued cocaine, cannabinoids, tobacco and alcohol use. The patient was not receptive to any physical exam or really interview, so no education was able to be given at this time. We will continue to try with daily abstinence and cessation education. 3. Medical noncompliance history. 4. Further recommendation to follow physician evaluation, laboratory and diagnostic data. Dictated by ALMA Varner for Robert Mo MD cc: Robert Mo MD MTDD
--- NOTE | 2019-07-24 16:10 | EKG Report ---
Test Performed on : 07/24/2019 2:53:49 PM Test Reason : changes in telemetry Blood Pressure : / mmHG Vent. Rate : 095 BPM Atrial Rate : 095 BPM P-R Int : 152 ms QRS Dur : 080 ms QT Int : 448 ms P-R-T Axes : 080 076 -66 degrees QTc Int : 562 ms Sinus rhythm. with marked sinus arrhythmia. with frequent and consecutive premature ventricular compl exes. Low voltage QRS Cannot rule out Inferior infarct , age undetermined Cannot rule out Anterior infarct (cited on or before 13-MAY-2019) Prolonged QT Abnormal ECG When compared with ECG of 24-JUL-2019 06:33, (Unconfirmed) premature ventricular complexes. are now present QT has lengthened Unconfirmed Result
--- NOTE | 2019-07-24 18:43 | HISTORY AND PHYSICAL ---
ADDENDUM: Patient seen and examined. Full note dictated by myself. The patient presented to the hospital. She has a known history of congestive heart failure with an EF of 30%. Unfortunately, she apparently used more cocaine than usual over the [place] holidays, which is likely contributing to her current symptoms. Her blood pressures are also elevated. We are going to admit her to the hospital, with Lasix and follow her blood pressures. I discussed with her in very precise detail that her use of cocaine is the cause of her current symptoms, and she certainly needs to consider avoiding this in the future. cc: Robert Mo MD
[2019-07-24] MEDS ORDERED: TYLENOL PO PRN (19:23)
[2019-07-25 06:49] LABS: AGAP 11; BUN 8 mg/dL (8-22); CALCIUM 7.8 mg/dL (8.8-10.2); CHLORIDE 99 mmol/L (98-107); COSMO 281; CREATININE 0.7 mg/dL (0.5-0.9); ESTIMATED GFR > 60; GLUCOSE 164 mg/dL (70-104); MAGNESIUM 1.2 mg/dL (1.5-2.7); SODIUM 140 mmol/L (136-145); TCO2 31 mmol/L (25-35)
[2019-07-25] MEDS ORDERED: KLOR-CON PO ONE ×2 (07:59→13:00)
[2019-07-25] MEDS ORDERED: CALCIUM GLUCONATE 1 GM in NS 50 ML IV ONE (07:59)
[2019-07-25] MEDS ORDERED: MAGNESIUM SULFATE 2 GM/S.W.I. 2 GM/50 ML IVPB IV ONE (08:30)
[2019-07-25] MEDS ORDERED: POTASSIUM CHLORIDE 20 MEQ/SWI 20 MEQ/100 ML IVPB IV ONE (09:00)
[2019-07-25] MEDS ORDERED: LOPRESSOR PO SCH (09:00)
[2019-07-25] MEDS ORDERED: MAG-OX PO SCH (10:00)
[2019-07-25 11:43] VITALS: BP 130/87
--- NOTE | 2019-07-25 14:14 | DISCHARGE SUMMARY ---
ADMISSION DATE: 07/24/2019 DISCHARGE DATE: 07/25/2019 PRIMARY CARE PROVIDER: None. PERTINENT PROCEDURES: Chest x-ray, new small right pleural effusion, stable cardiomegaly and pulmonary vascular congestion. DISCHARGE DIAGNOSES: 1. Congestive heart failure exacerbation, improved with IV diuresis. The patient will be discharged on p.o. Lasix, p.o. magnesium and potassium. 2. Sinus tachycardia with multiple PVCs. The patient will be discharged on metoprolol. 3. Continued cocaine, cannabinoids, tobacco, and alcohol use. The patient was educated on abstinence, as well as cessation education. 4. Medical noncompliance history. The patient has been educated on being compliant with medications. She does report if she was given prescriptions for medications that she would get her grandmother to get them filled for her and that she would take them. We also encouraged her to follow up with a primary care provider and gave her the physician referral line as well. HOSPITAL COURSE: Briefly, Ms. Syed is a 44-year-old female with a past medical history of cocaine, cannabinoid, tobacco and alcohol use and abuse, hypertension, depression, congestive heart failure with an EF of 30% in the setting of global hypokinesis. Reported to the ED for shortness of breath and increase in lower extremity edema and admitted to doing excessive amounts of cocaine during [place]. EMS reported O2 saturations were in the 70s. Workup in the ED showed pulmonary vascular congestion and stable cardiomegaly and a right pleural effusion and elevated proBNP and chronic anemia. She was positive for cocaine and cannabinoids. She was initiated on IV Lasix. She had elevated blood pressures through her admission as well as multifocal PVCs with her heart rhythm. We replenished her electrolytes. She was placed on metoprolol. Dr. Mo did discuss with her in very precise detail that her use of cocaine was the cause of her current symptoms and needs to avoid this in the future and discussed taking all her medications as prescribed. She did report if she was given prescriptions that her grandmother would get them filled for her and that she would take them. VITAL SIGNS: At time of discharge, temperature was 97.4 degrees, heart rate 81, respirations 18, blood pressure 130/87, O2 is 96% on room air. DISCHARGE DIET: Healthy heart. DISCHARGE MEDICATIONS: 1. Lasix 40 mg p.o. daily. 2. Lopressor 12.5 mg p.o. b.i.d. 3. Mag-Ox 400 mg p.o. daily. 4. Potassium chloride 10 mEq p.o. daily. FOLLOWUP: Ms. Syed is being discharged home with self care. She is to take all medications as prescribed. She is to follow up with a primary care physician to the list that has been provided to her. She has been educated on illicit drug abstinence, tobacco cessation, as well as alcohol abstinence and being compliant with her medications. She can return to the ED or call 911 for any worsening of symptoms. Dictated by ALMA Varner for Robert Mo MD cc: Robert Mo MD
--- NOTE | 2019-07-25 14:22 | DISCHARGE SUMMARY ---
ADMISSION DATE: 07/24/2019 DISCHARGE DATE: 07/25/2019 ADDENDUM: Patient seen and examined by myself. Full note dictated and discussed with nurse practitioner. Patient presented to the hospital with an acute congestive heart failure exacerbation. Unfortunately, she has also had some ventricular ectopy secondary to her cocaine use. Discussed with her that she desperately needs to stop cocaine prior to her untimely . We will continue to follow. We will discharge her home on Lasix, metoprolol. She can follow up outpatient with Cardiology. We replaced her magnesium and potassium. cc: Robert Mo MD
== END 2019-07-25 13:54 | disposition home or self-care (01) ==
LOC: P.ED 22:35 → P.MEDSURG 22:35
PROVIDERS: ATTEND Family Medicine